=== PATIENT | female | born 1945 | race Caucasian/White ===

== ENCOUNTER → 2016-10-05 | Outpatient (CLI) | payer OTHER ==
[~2016-10-05] MED LIST: CALC-173 PO; MULT-658 PO; OMEG1CAP34 PO; PANT40TA5 PO; RED600CA2 PO; UBID100C11 PO; VITA1TAB85 PO; VITAMINS; [UNRECOGNIZED DRUG - CODE] PO; florify PO; magnesium PO
[2016-10-05 11:57] LABS: BLOOD UREA NITROGEN 19 mg/dL (7-18)
== END | disposition home or self-care (01) ==
LOC: STAR 10:40 → MERGE 11:00
PROVIDERS: ATTEND Surgery
DX: Z01.818 Encounter for other preprocedural examination (principal); K80.10 Calculus of gallbladder with chronic cholecystitis without obstruction
CPT/HCPCS: 36415; 80048; 85025; 93005

== ENCOUNTER 2016-10-12 06:36 | Day surgery (SDC) | payer OTHER ==
[~2016-10-12] VITALS: Ht 154.9 cm; Wt 47.8 kg
[~2016-10-12 06:36] MED LIST changes: +BUPIVACAINE/PF-EPI 0.5% 1:200K ONE; +INDOCYANINE GREEN 25 MG VIAL ONE
[2016-10-12] MEDS ORDERED: LACTATED RINGERS 1,000 ML IV SCH (07:16)
[2016-10-12 07:17] VITALS: BP 134/78
[2016-10-12] MEDS ORDERED: LIDOCAINE 1%, 2ML ONE (07:27)
[2016-10-12] MEDS ORDERED: LIDOCAINE 1%, 2ML SQ PRN (07:30)
[2016-10-12] MEDS ORDERED: INDOCYANINE GREEN 25 MG VIAL ONE (07:44)
[2016-10-12] MEDS ORDERED: FENTANYL PF 250 MCG/5ML ONE (07:48)
[2016-10-12] MEDS ORDERED: MIDAZOLAM 1 MG/ML, 2ML ONE (07:48)
[2016-10-12] MEDS ORDERED: INDOCYANINE GREEN 25 MG VIAL IVPush ONE (07:48)
[2016-10-12] MEDS ORDERED: FENTANYL PF 100 MCG/2ML IV PRN (08:00)
[2016-10-12] MEDS ORDERED: hydrALAzine 20 MG/ML, 1ML IV PRN (08:00)
[2016-10-12] MEDS ORDERED: HYDROmorphone 1 MG/ML, 1ML IV PRN (08:00)
[2016-10-12] MEDS ORDERED: ACETAMINOPHEN 325 MG TABLET PO PRN (08:00)
[2016-10-12] MEDS ORDERED: ONDANSETRON 2MG/ML, 2ML IVPush PRN ×2 (08:00→09:30)
[2016-10-12] MEDS ORDERED: ALBUTEROL SULFATE 2.5 MG/3 ML NPPB PRN (08:00)
[2016-10-12] MEDS ORDERED: PROMETHAZINE 25 MG/ML, 1ML IV PRN (08:00)
[2016-10-12] MEDS ORDERED: LABETALOL 5MG/ML, 20ML IV PRN (08:00)
[2016-10-12] MEDS ORDERED: OXYcodone 5 MG/5 ML ORAL.SOL UDC PO PRN (08:00)
[2016-10-12] MEDS ORDERED: SUCCINYLCHOLINE 20 MG/ML, 10ML ONE (08:17)
[2016-10-12] MEDS ORDERED: ROCURONIUM 10 MG/ML ONE (08:17)
[2016-10-12] MEDS ORDERED: DEXAMETHASONE 4 MG/ML, 1ML ONE (08:17)
[2016-10-12] MEDS ORDERED: PROPOFOL 10 MG/ML, 20ML ONE (08:17)
[2016-10-12] MEDS ORDERED: ONDANSETRON 2MG/ML, 2ML ONE (08:17)
[2016-10-12] MEDS ORDERED: NEOSTIGMINE 1 MG/ML, 10ML ONE (08:17)
[2016-10-12] MEDS ORDERED: GLYCOPYRROLATE 0.2MG/1ML ONE (08:17)
[2016-10-12] MEDS ORDERED: CEFAZOLIN 1,000 MG ONE (08:17)
[2016-10-12] MEDS ORDERED: morphine SULFATE 10 MG/ML, 1ML IVPush PRN (09:30)
[2016-10-12] MEDS ORDERED: KETOROLAC 30 MG/1 ML IVPush PRN (09:30)
[2016-10-12] MEDS ORDERED: ACETAMINOPHEN 650 MG/20.3 ML UDC ONE (09:35)
[2016-10-12] MEDS ORDERED: FENTANYL PF 100 MCG/2ML ONE (09:35)
[2016-10-12] MEDS ORDERED: OXYcodone 5 MG/5 ML ORAL.SOL UDC ONE (09:35)
== END 2016-10-12 11:35 | disposition home or self-care (01) ==
LOC: OUT 06:36 → MERGE 08:30 → OUT 11:35
PROVIDERS: ATTEND Surgery
DX: K80.10 Calculus of gallbladder with chronic cholecystitis without obstruction (principal); K21.9 Gastro-esophageal reflux disease without esophagitis; M81.0 Age-related osteoporosis without current pathological fracture; Z83.6 Family history of other diseases of the respiratory system; Z87.891 Personal history of nicotine dependence; Z90.710 Acquired absence of both cervix and uterus
CPT/HCPCS: 47562; 88304; J0330; J0690; J1100; J2250; J2405; J2704; J2710; J3010; J3490; J7120; S2900

== ENCOUNTER → 2017-02-24 | Outpatient (CLI) | payer OTHER ==
[~2017-02-24] MED LIST changes: -BUPIVACAINE/PF-EPI 0.5% 1:200K ONE; -INDOCYANINE GREEN 25 MG VIAL ONE; -UBID100C11 PO; +UBID100C41 PO
== END | disposition home or self-care (01) ==
LOC: CFH 10:23
PROVIDERS: ATTEND Family Medicine
DX: Z12.31 Encounter for screening mammogram for malignant neoplasm of breast (principal); I71.4 Abdominal aortic aneurysm, without rupture; Z87.891 Personal history of nicotine dependence; Z82.49 Family history of ischemic heart disease and other diseases of the circulatory system
CPT/HCPCS: 77063; 93978; G0202

== ENCOUNTER 2018-05-01 15:50 | Emergency (ER) | payer MEDICARE, OTHER ==
[~2018-05-01] VITALS: Ht 154.9 cm; Wt 50.5 kg
[2018-05-01 16:27] LABS: BASOPHILS # (AUTO) 0.04 x10^3/uL (0-0.1); BASOPHILS % (AUTO) 1 % (0-1); EOSINOPHILS # (AUTO) 0.29 x10^3/uL (0-0.4); EOSINOPHILS % (AUTO) 5 % (1-7); LYMPHOCYTES # (AUTO) 1.54 x10^3/uL (1-3.4); LYMPHOCYTES % (AUTO) 26 % (22-44); MD NO; MEAN CORPUSCULAR HEMOGLOBIN 34.7 pg (27.0-34.8); MEAN CORPUSCULAR HGB CONC 33.8 g/dL (32.4-35.8); MEAN CORPUSCULAR VOLUME 102.5 fL (80-100); MEAN PLATELET VOLUME 7.3 fL (7.4-10.4); MONOCYTES # (AUTO) 0.86 x10^3/uL (0.2-0.8); MONOCYTES % (AUTO) 15 % (2-9); NEUTROPHILS % (AUTO) 53 % (42-75); PLATELET COUNT 424 x10^3/uL (130-400); RED BLOOD COUNT 3.95 x10^6/uL (3.82-5.3); RED CELL DISTRIBUTION WIDTH 13.1 % (9.6-15.2)
[2018-05-01 16:41] LABS: ALBUMIN 4.1 g/dL (3.4-5.0); ANION GAP 6 mmol/L (5-15); CALCIUM 9.5 mg/dL (8.5-10.1); CHLORIDE 104 mmol/L (98-107); CREATININE 0.74 mg/dL (0.55-1.02)
[2018-05-01] MEDS ORDERED: OMNIPAQUE 350 MG/ML, 100ML BOTTLE ONE (18:01)
[2018-05-01 19:15] VITALS: BP 140/80
== END 2018-05-01 19:16 | disposition home or self-care (01) ==
LOC: ED 18:50
DX: S22.080A Wedge compression fracture of T11-T12 vertebra, initial encounter for closed fracture (principal); W19.XXXA Unspecified fall, initial encounter; Y93.89 Activity, other specified; Y99.8 Other external cause status; Y92.89 Other specified places as the place of occurrence of the external cause
CPT/HCPCS: 36415; 71046; 71275; 72128; 80048; 82040; 83880; 85025; 93005; 99284; Q9967

== ENCOUNTER 2019-07-15 10:04 | Emergency (ER) | payer MEDICARE ==
[~2019-07-15] VITALS: Ht 154.9 cm; Wt 51.2 kg
--- NOTE | 2019-07-15 10:28 | NUR ---
PT IN ROOM, CHANGED INTO HOSPITAL GOWN. CONNECTED TO MONITOR. PT IN WITH C/O COUGH X 2 DAYS, SORE THROAT X2 DAYS. PT STATES SHE WENT TO URGENT CARE YESTERDAY TO R/O FLU AND WAS ADVISED TO GO TOT THE ER. CALL LIGHT WITHIN REACH.
--- NOTE | 2019-07-15 11:27 | NUR ---
IV STARTED. LAB AT BEDSIDE.
[2019-07-15] MEDS ORDERED: SODIUM CHLORIDE FLUSH 10ML SYR IVF ONE (11:30)
[2019-07-15 11:40] LABS: BASOPHILS # (AUTO) 0.01 x10^3/uL (0-0.1); BASOPHILS % (AUTO) 0 % (0-1); EOSINOPHILS # (AUTO) 0.01 x10^3/uL (0-0.4); EOSINOPHILS % (AUTO) 0 % (1-7); LYMPHOCYTES # (AUTO) 0.22 x10^3/uL (1-3.4); LYMPHOCYTES % (AUTO) 5 % (22-44); MD NO; MEAN CORPUSCULAR HEMOGLOBIN 34.6 pg (27.0-34.8); MEAN CORPUSCULAR HGB CONC 34.3 g/dL (32.4-35.8); MEAN CORPUSCULAR VOLUME 100.7 fL (80-100); MEAN PLATELET VOLUME 8.3 fL (7.4-10.4); MONOCYTES # (AUTO) 0.28 x10^3/uL (0.2-0.8); MONOCYTES % (AUTO) 6 % (2-9); NEUTROPHILS # (AUTO) 4.26 x10^3/uL (1.8-6.8); NEUTROPHILS % (AUTO) 89 % (42-75); PLATELET COUNT 210 x10^3/uL (130-400); RED CELL DISTRIBUTION WIDTH 13.2 % (9.6-15.2)
[2019-07-15 11:53] LABS: ALANINE AMINOTRANSFERASE 24 U/L (12-78); ALBUMIN 3.8 g/dL (3.4-5.0); ANION GAP 9 mmol/L (5-15); CALCIUM 8.5 mg/dL (8.5-10.1); CHLORIDE 104 mmol/L (98-107); CREATININE 0.96 mg/dL (0.55-1.02)
[2019-07-15 11:59] LABS: ALKALINE PHOSPHATASE 78 U/L (45-117); BILIRUBIN,TOTAL 0.4 mg/dL (0.2-1.0); TOTAL PROTEIN 7.6 g/dL (6.4-8.2); TROPONIN I < 0.015 ng/mL (0.000-0.045)
[2019-07-15 12:54] VITALS: BP 135/60
== END 2019-07-15 12:56 | disposition home or self-care (01) ==
LOC: ED 10:39
DX: J20.9 Acute bronchitis, unspecified (principal); Z90.49 Acquired absence of other specified parts of digestive tract; Z90.710 Acquired absence of both cervix and uterus
CPT/HCPCS: 36415; 71045; 80053; 83605; 83880; 84484; 85025; 87040; 93005; 99284

== ENCOUNTER 2019-08-28 09:09 | Emergency (ER) | payer MEDICARE ==
[~2019-08-28] VITALS: Ht 154.9 cm; Wt 50.0 kg
[2019-08-28 09:31] VITALS: BP 136/84
[2019-08-28] MEDS ORDERED: DEXAMETHASONE 4 MG TABLET ONE (09:58)
[2019-08-28] MEDS ORDERED: DEXAMETHASONE 4 MG/ML, 1ML PO ONE (10:00)
--- NOTE | 2019-08-28 10:07 | NUR ---
Medicated as noted for facial redness, swelling & itching x 5 days. No swelling of tongue, lips, no dyspnea/wheezing. Unknown allergen. Has taken benadryl w/ relief but s/s resume once meds worn off.
== END 2019-08-28 10:10 | disposition home or self-care (01) ==
LOC: ED 09:49
DX: L50.9 Urticaria, unspecified (principal); Z90.49 Acquired absence of other specified parts of digestive tract; Z90.710 Acquired absence of both cervix and uterus
CPT/HCPCS: 99283; J1100

== ENCOUNTER 2019-09-04 10:25 | Emergency (ER) | payer MEDICARE ==
[~2019-09-04] VITALS: Ht 154.9 cm; Wt 48.2 kg
--- NOTE | 2019-09-04 10:52 | NUR ---
THIS IS A 74 YO FEMALE WHO PRESENTS TO THE ER C/O FACE RASH X 1.5 WEEKS. PT HAS REDNESS AND VERY MILD SWELLING ON BILAT EYES. PT REPORTS A SMALL AMOUNT OF WEEPING. DENIES COUGH, SOB OR FEVERS. PT AO X 4. SKIN PWD APART FROM FACE. CALL LIGHT WITHIN REACH. WILLL CONT TO MONITOR PT.
[2019-09-04] MEDS ORDERED: FAMOTIDINE 20 MG TABLET PO ONE (11:00)
[2019-09-04] MEDS ORDERED: FAMOTIDINE 20 MG TABLET ONE (11:01)
[2019-09-04 11:24] VITALS: BP 122/74
== END 2019-09-04 11:27 | disposition home or self-care (01) ==
LOC: ED 10:50
DX: L01.01 Non-bullous impetigo (principal); M81.0 Age-related osteoporosis without current pathological fracture; Z90.49 Acquired absence of other specified parts of digestive tract; Z90.710 Acquired absence of both cervix and uterus; Z87.891 Personal history of nicotine dependence
CPT/HCPCS: 99283; J7512